=== PATIENT | male | born 1995 | race Caucasian/White ===

== ENCOUNTER 2017-12-24 15:31 | Emergency (ER) | payer OTHER ==
[~2017-12-24] VITALS: Ht 165.1 cm; Wt 70.0 kg
[2017-12-24 15:41] VITALS: BP 114/70
[2017-12-24 17:21] LABS: HEPATITIS B SURFACE AB 908.6 mIU/mL
[2017-12-24 17:31] LABS: HEPATITIS B SURFACE ANTIGEN NEGATIVE
[2017-12-26 13:06] LABS: HIV SCREEN 4G Non Reactive (Non Reactive)
[2017-12-26 15:10] LABS: HEPATITIS B CORE ANTIBODY Negative (Negative)
== END 2017-12-24 17:00 | disposition home or self-care (01) ==
LOC: ER 15:49
DX: Z77.21 Contact with and (suspected) exposure to potentially hazardous body fluids (principal); R03.0 Elevated blood-pressure reading, without diagnosis of hypertension
CPT/HCPCS: 36415; 80076; 87186; 99284